=== PATIENT | female | born 1985 | race Caucasian/White ===

== ENCOUNTER 2025-06-02 08:32 | Emergency (ER) | payer BC, SELFPAY ==
[2025-06-02 08:38] VITALS: BP 141/99
--- NOTE | 2025-06-02 09:20 | ED.GENMED ---
History of Present Illness
General
Chief Complaint: Swelling
Time Seen by Provider: 06/02/25 09:03
History of Present Illness
History of Present Illness:
39-year-old female presents to the emergency department for evaluation of persistently worsening right groin swelling, redness, and pain over the past 3 to 4 days. She has been on Bactrim and using topical mupirocin without improvement. Also
reports tactile fevers and chills and generalized myalgias. No history of MRSA.
Review of Systems
Review of Systems
Allergies reviewed?: Yes
All Other Systems: ROS reviewed and negative except as documented in HPI and ROS
Phy Exam
Physical Exam
Physical Exam:
GEN: Well appearing, NAD, WDWN
HEENT: Oral mucosa moist, no scleral icterus
Cardiac: Regular rate
Lung: No respiratory distress, no tachypnea
MSK: No gross deformity or injuries
Skin: Good color, no pallor or jaundice, prominent fluctuant mass to the right inguinal region with overlying erythema suspicious for abscess
Neuro: AO x3, moves all extremities freely
Psych: Calm, cooperative
Course
Orders/Labs/Results
Orders:
Orders
06/02/25 09:47
Wound Culture [Wound/Abscess/Other Culture] Urgent
JAZMYNE Source: Abscess
Specimen Description:
Date Specimen was Collected: 06/02/25
Time Specimen was Collected: 09:45
Comment: R groin
Vital Signs
Initial and Last Documented VS:
Initial Vital Signs
Temp Pulse Resp BP Pulse Ox
98.4 F 110 16 141/99 98
06/02/25 08:38 06/02/25 08:38 06/02/25 08:38 06/02/25 08:38 06/02/25 08:38
Last Documented Vital Signs
Temp Pulse Resp BP Pulse Ox
98.4 F 110 16 141/99 98
06/02/25 08:38 06/02/25 08:38 06/02/25 08:38 06/02/25 08:38 06/02/25 09:21
Procedures
Incision/Drainage/Joint Aspiration
R groin abscess:
Anethesia: 1% Lidocaine with Epi
Preparation: cleaned with alcohol wipe
Type of procedure: aspiration
Nature of site: abscess
Description of abscess: greater than 3cm
Loculations broken up: Yes
How much fluid was obtained?: large amount
Fluid description: purulent, bloody and foul smelling
Treatment: packed with gauze
MDM/Problems Addressed
MDM/Problems Addressed:
Limited bedside US performed prior to I&D to confirm fluid pocket and no loops of bowel. I&D successful with copious malodorous drainage. Iodoform packing placed, will continue TMP-SMX pending Cx results. Although pt it slightly tachycardic she is
overall well appearing, given that goal of treatment currently is source control, do not feel there is benefit to labs at this time
*Pulse Oximetry
SaO2: 98
Oxygen Mode of Delivery: Room air
Patient hypoxic: no
*Critical Care Note
Total Time (30-74mins, 75-104mins- exclusive of procedures): Not Applicable
ED Attending Note
-
Portions of this chart may have been created with voice recognition software.� Occasional wrong word or��sound alike� substitutions may have occurred due to the inherent limitations of voice recognition software.
Discharge Plan
Departure
Patient Disposition: Home (Routine Discharge)
Date of Disposition: 06/02/25
Time of Disposition: 09:38
Patient with high blood pressure during this ER visit?: No
Discharge Problem:
Abscess of right groin
Instructions: Abscess incision and drainage - ED (DC)
Referrals:
Nano Cam MD [Family Provider, Internal Medicine]
Activity Restrictions/Additional Instructions:
Continue Bactrim unless we direct you otherwise based on culture report
Change the dressing when it becomes saturated or at least once a day, the packing may come out on its own during a dressing change which is okay, otherwise packing should be removed on Wednesday
Warm compresses over the area may help to facilitate more drainage
If you continue to have fevers or worsening symptoms do not hesitate to return to the ER
Interventions
Interventions:
*Risk Screen - Suicide Last Done: 06/02/25 08:38
*General Assessment Last Done: 06/02/25 09:40
*Neglect/Abuse Screening Last Done: 06/02/25 08:38
*ED- Fall Risk Assessment Last Done: 06/02/25 09:40
*ED COVID-19 Vaccine History Last Done: 06/02/25 09:40
*ED Influenza Vaccine History Last Done: 06/02/25 09:40
*Nursing Disposition Last Done: 06/02/25 10:27
ED- Cardiac Assessment Last Done: 06/02/25 09:40
ED- Pulmonary Assessment Last Done: 06/02/25 09:40
ED-Skin Assessment Last Done: 06/02/25 09:40
Discharge Date and Time
Discharge Date/Time: 06/02/25 10:28
Print Language: [email or web address]
== END 2025-06-02 10:28 | disposition home or self-care (01) ==
LOC: EMR 08:32
PROVIDERS: EMERGENCY PHYSICIAN Emergency Medicine; FAMILY PHYSICIAN Internal Medicine
DX: L02.214 Cutaneous abscess of groin (principal)
CPT/HCPCS: 10060; 99283; 87070; 87205